=== PATIENT | male | born 1985 | race Caucasian/White ===

== ENCOUNTER 2018-10-18 16:08 | Emergency (ER) | payer OTHER ==
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
[2018-10-18 18:14] VITALS: BP 132/86
== END 2018-10-18 18:15 | disposition home or self-care (01) ==
LOC: ER 16:08
DX: M25.511 Pain in right shoulder (principal); M25.512 Pain in left shoulder; M54.2 Cervicalgia; V87.7XXA Person injured in collision between other specified motor vehicles (traffic), initial encounter; F17.200 Nicotine dependence, unspecified, uncomplicated
CPT/HCPCS: 99283

== ENCOUNTER 2019-08-03 01:15 | Emergency (ER) | payer OTHER ==
--- NOTE | 2019-08-03 03:47 | RADIOLOGY REPORT (SQ) ---
EXAM DESCRIPTION: XR CHEST 2 VIEWS COMPLETED DATE/TME: 08/03/2019 00:00 CLINICAL HISTORY: 34 years, Male, CP COMPARISON: None. NUMBER OF VIEWS: Two TECHNIQUE: Two views of the chest LIMITATIONS: None. FINDINGS: The lungs are clear. The heart is normal in size. There is no pneumothorax or pleural effusion. There is no acute fracture. IMPRESSION: No acute cardiopulmonary abnormality copyright 2010 [employer]- All Rights Reserved
[2019-08-03 04:11] LABS: ABSOLUTE BASOPHILS # (AUTO) 0.1 10^3/uL (0.0-0.2); ABSOLUTE EOSINOPHILS # (AUTO) 0.2 10^3/uL (0.0-0.6); ABSOLUTE LYMPHOCYTES (AUTO) 2.2 10^3/uL (0.5-4.7); ABSOLUTE MONOCYTES (AUTO) 0.7 10^3/uL (0.1-1.4); ABSOLUTE NEUT (AUTO) 5.3 10^3/uL (1.7-8.2); BASOPHILS % (AUTO) 0.9 % (0-2); EOSINOPHILS % (AUTO) 2.7 % (0-6); HEMATOCRIT 43.7 % (37.9-51.0); HEMOGLOBIN 15.2 g/dL (13.5-17.0); LYMPHOCYTES % (AUTO) 26.2 % (13-45); MEAN CORPUSCULAR HEMOGLOBIN 32.2 pg (27.0-33.4); MEAN CORPUSCULAR HGB CONC 34.8 g/dL (32.0-36.0); MEAN CORPUSCULAR VOLUME 93 fl (80-97); MONOCYTES % (AUTO) 8.3 % (3-13); PLATELET COUNT 244 10^3/uL (150-450); RED BLOOD COUNT 4.72 10^6/uL (4.35-5.55); RED CELL DISTRIBUTION WIDTH 13.9 % (11.5-14.0); SEGMENTED NEUTROPHILS % (AUTO) 61.9 % (42-78); TOTAL CELLS COUNTED % (AUTO) 100 %; WHITE BLOOD COUNT 8.5 10^3/uL (4.0-10.5)
[2019-08-03 04:33] LABS: ALBUMIN 4.5 g/dL (3.5-5.0); ALKALINE PHOSPHATASE 75 U/L (38-126); ANION GAP 13 (5-19); ASPARTATE AMINO TRANSFERASE 27 U/L (17-59); BILIRUBIN,DIRECT 0.1 mg/dL (0.0-0.4); BILIRUBIN,TOTAL 0.4 mg/dL (0.2-1.3); BLOOD UREA NITROGEN 15 mg/dL (7-20); CALCIUM 9.9 mg/dL (8.4-10.2); CARBON DIOXIDE 22 mmol/L (22-30); CHLORIDE 106 mmol/L (98-107); CREATINE KINASE 71 U/L (55-170); GLUCOSE 110 mg/dL (75-110); POTASSIUM 4.5 mmol/L (3.6-5.0); TOTAL PROTEIN 7.5 g/dL (6.3-8.2)
[2019-08-03 04:48] LABS: TROPONIN I < 0.012 ng/mL
[2019-08-03] MEDS ORDERED: PANTOPRAZOLE SODIUM 40 MG TABLET.DR PO ONE (06:03)
--- NOTE | 2019-08-03 06:55 | ER Document Report ---
ED General - General Chief Complaint: Chest Pain Stated Complaint: CHEST PAIN Time Seen by Provider: 08/03/19 05:47 Primary Care Provider: JUDAH CARABALLO MD [Primary Care Provider] - Follow up as needed Notes: This is a 34-year-old gentleman who presents today with a complaint of midsternal chest pain that started last night. Patient describes his pain as aching and burning, going up and on his midsternum. Persistent symptoms included nausea. He denies any dyspnea. Patient states he feels fine now. Pain seems to be worse when laying supine. He denies any recent travel. He denies any drug use. States that he thought this could have been reflux. He just wanted to make sure there was nothing else. He has had similar pain with food in the past before. TRAVEL OUTSIDE OF THE [place] IN LAST 30 DAYS: No - Related Data Allergies/Adverse Reactions: Penicillins Allergy (Verified 08/03/19 01:24) Past Medical History - Social History Smoking Status: Current Every Day Smoker Frequency of alcohol use: Social Family History: Reviewed & Not Pertinent Patient has suicidal ideation: No Patient has homicidal ideation: No - Past Medical History Cardiac Medical History: Reports: Hx Hypercholesterolemia Renal/ Medical History: Denies: Hx Peritoneal Dialysis - Immunizations Hx Diphtheria, Pertussis, Tetanus Vaccination: - UNKNOWN Review of Systems - Review of Systems Cardiovascular: Chest pain. denies: Palpitations, Orthopnea, Dyspnea Respiratory: denies: Short of breath, Sputum Gastrointestinal: denies: Abdominal pain, Diarrhea, Vomiting -: Yes All other systems reviewed and negative Physical Exam - Vital signs Vitals: Temp Pulse Resp BP 97.6 F 68 16 138/75 H 08/03/19 01:15 08/03/19 01:15 08/03/19 01:15 08/03/19 01:15 Interpretation: Normal - General General appearance: Appears well, Alert - HEENT Head: Normocephalic, Atraumatic Eyes: Normal Pupils: PERRL - Respiratory Respiratory status: No respiratory distress Chest status: Nontender Breath sounds: Normal Chest palpation: Normal - Cardiovascular Rhythm: Regular Heart sounds: Normal auscultation Murmur: No - Abdominal Inspection: Normal Distension: No distension Bowel sounds: Normal Tenderness: Nontender Organomegaly: No organomegaly - Extremities General upper extremity: Normal inspection, Nontender, Normal color, Normal ROM, Normal temperature General lower extremity: Normal inspection, Nontender, Normal color, Normal ROM, Normal temperature. No: Ruby's sign - Neurological Neuro grossly intact: Yes Cognition: Normal Orientation: AAOx4 Kenneth Coma Scale Eye Opening: Spontaneous Kenneth Coma Scale Verbal: Oriented [place] Coma Scale Motor: Obeys Commands Kenneth Coma Scale Total: 15 Speech: Normal Motor strength normal: LUE, RUE, LLE, RLE Sensory: Normal Course - Re-evaluation Re-evalutation: 08/03/19 06:52 Clinical picture is highly suggestive of GERD. Differential diagnosis includes atypical chest pain. There is no clinical suspicion for acute coronary syndrome and is 34-year-old with atypical chest pain. Can rule out with one negative troponin given duration. However, will get 2 troponins. No clinical suspicion for PE. EKG shows normal sinus rhythm at 65 bpm. Right bundle branch block. No acute injury pattern. [id number] Patient reevaluated. Patient is doing well. He remains pain-free. Troponin negative x2. We will put him on a PPI. He is stable for discharge. - Vital Signs Vital signs: Temp Pulse Resp BP Pulse Ox 97.6 F 68 16 143/83 H 97 08/03/19 01:15 08/03/19 01:15 08/03/19 05:01 08/03/19 05:01 08/03/19 05:01 - Laboratory Result Diagrams: 08/03/19 03:49 08/03/19 03:49 Discharge - Discharge Clinical Impression: Atypical chest pain GERD (gastroesophageal reflux disease) Qualifiers: Esophagitis presence: esophagitis presence not specified Qualified Code(s): K21.9 - Gastro-esophageal reflux disease without esophagitis Condition: Good Disposition: HOME, SELF-CARE Instructions: Prilosec (Acid Pump Inhibitor) ([facility]), Reflux Disease (GERD) ([facility]) Prescriptions: Esomeprazole Mag Trihydrate [Nexium] 40 mg PO DAILY 30 Days #30 capsule. Referrals: JUDAH CARABALLO MD [Primary Care Provider] - Follow up as needed
[2019-08-03 07:03] VITALS: BP 140/95
--- NOTE | 2019-08-03 22:46 | EKG REPORT ---
SEVERITY:- ABNORMAL ECG - SINUS RHYTHM RIGHT BUNDLE BRANCH BLOCK : Confirmed by: Anneliese Lynn 03-Aug-2019 22:45:54
== END 2019-08-03 07:03 | disposition home or self-care (01) ==
LOC: ER 01:15
DX: K21.9 Gastro-esophageal reflux disease without esophagitis (principal); R07.89 Other chest pain; R11.0 Nausea; I45.10 Unspecified right bundle-branch block; F17.200 Nicotine dependence, unspecified, uncomplicated; Z88.0 Allergy status to penicillin
CPT/HCPCS: 93005; 99285; 36415; 82553; 82550; 85025; 80053; 84484; 71046; 93010; J3490